=== PATIENT | male | born 1950 | race Caucasian/White ===

== ENCOUNTER 2016-12-22 12:04 | Day surgery (SDC) | payer OTHER, MEDICARE ==
[~2016-12-22] VITALS: Ht 180.3 cm; Wt 105.0 kg
[~2016-12-22 12:04] MED LIST: ASPI-973 PO; KEN25CR EXT; OMEP20CA11 PO; Sodium Chloride LOK Flush 10 mL Syringe IV PRN; fentaNYL-PF 50 mCg/mL 2 mL Inj IVPUSH PRN
[2016-12-22 12:53] VITALS: BP 137/82; PULSE 71; RESP 18; O2SAT 100
[2016-12-22] MEDS: 0.9% Sodium Chloride 1,000 ML IV SCH ×2 (13:15→13:34)
[2016-12-22 13:45] VITALS: BP 144/81; PULSE 67; RESP 16; O2SAT 95
[2016-12-22 13:55] VITALS: BP 141/83; PULSE 65; RESP 16; O2SAT 95
[2016-12-22 14:07] VITALS: BP 142/82; PULSE 61; RESP 16; O2SAT 97
[2016-12-22 14:15] VITALS: BP 145/78; PULSE 62; RESP 16; O2SAT 96
--- NOTE | 2016-12-23 03:06 | ENDO ---
[address] [address] ENDOSCOPY PROCEDURE PATIENT: NELLY JOLLY : 1950 MR#: [id number] ADMIT: 12/22/2016 JOB ID: [id number] PROCEDURE: Colonoscopy. INDICATION: Screening. Patient's ASA classification is 2. Mallampati score is 2. MEDICATIONS: 1. Versed at 7 mg. 2. Fentanyl 150 mcg. INSTRUMENT USED: PCF-H180 AL. PREP QUALITY: Fair. PROCEDURE DETAILS: After informed consent was obtained, the patient was brought into the GI suite, where he was placed on oxygen via nasal cannula and monitored with continuous pulse oximeter, telemetry and blood pressure monitoring. A time-out was performed. Then, he was placed in a left lateral decubitus position. Medications were administered for sedation. Digital rectal exam was performed with palpation of the prostate which was unremarkable. The colonoscope was then inserted into the rectum and advanced under visualization to the cecum, which identified by the presence of the ileocecal valve and appendiceal orifice. Once it was reached, the colonoscope was withdrawn back to the rectum and the mucosa and lumen were examined. In the rectum, retroflexion was performed. Following retroflexion, remaining air in the rectum was suctioned, and procedure was completed. FINDINGS: 1. In the cecum, there were three polyps ranging in size from 5 mm to 7 mm. All three polyps were removed using a hot snare. 2. In the ascending colon, there were five polyps ranging from 5 mm to 8 mm. All polyps were removed using a hot snare. The largest polyp, the 8 mm polyp following removal, there was bleeding at the polypectomy site. Therefore two hemoclips were placed successfully for cessation to control bleeding. The site was then irrigated and monitored for approximately a minute and no further bleeding was seen. 3. In the transverse colon, there was an approximately 6 mm sessile polyp that was removed with a hot snare. In the rectum, there were two diminutive polyps and removed with cold biopsy forceps. 4. Scattered diverticula were seen throughout the left side of the colon. IMPRESSION: 1. Three cecal polyps. 2. Five ascending colon polyps. 3. One transverse colon polyp. 4. Two rectal polyps. 5. Left-sided diverticulosis. RECOMMENDATIONS: 1. Fiber rich diet. 2. No NSAIDs or anticoagulants for 72 hours. 3. Repeat colonoscopy in two years. COMPLICATIONS: None. ESTIMATED BLOOD LOSS: Less than 5 mL.
--- NOTE | 2016-12-26 11:19 | PATH ---
SURGICAL PATHOLOGY Attending Physician:Collin Olivas CASE STATUS: Signed Out PATIENT NAME: NELLY JOLLY PID: [id number] : 1950 DATE COLLECTED:12/22/2016 00:00 SPECIMEN: 1: Colon, Biopsy 2: Colon, Biopsy 3: Colon, Biopsy 4: Rectum, Biopsy CLINICAL HISTORY: 1). CECAL POLYP X3 2). ASCENDING COLON POLYPS X5 3). TRANSVERSE COLON POLYP 4). RECTAL POLYPS X2 FINAL DIAGNOSIS: 1.CECAL POLYPS: TUBULAR ADENOMAS, MULTIPLE FRAGMENTS. THREE POLYPS REMOVED. 2.ASCENDING COLON POLYPS: TUBULAR ADENOMAS, MULTIPLE FRAGMENTS. SESSILE SERRATED ADENOMAS, MULTIPLE FRAGMENTS. FIVE POLYPS REMOVED. 3.TRANSVERSE COLON POLYP: SESSILE SERRATED ADENOMA. 4.RECTAL POLYPS: HYPERPLASTIC POLYPS, TWO. ICD10 CODE D12.0 D12.2 D12.3 K62.1 GROSS DESCRIPTION: Received are four formalin-filled containers, each labeled with the patient' s name. 1. Received in formalin, labeled with the patient' s name and "1. Cecal polyps", are multiple fragments of story, soft tissue ranging in size from 0.1 x 0.1 x 0.1 cm to 0.2 x 0.1 x 0.1 cm. All fragments are totally submitted in cassette 1A. 2. Received in formalin, labeled with the patient' s name and "2. Ascending colon polyp", are multiple fragments of story, soft tissue ranging in size from 0.1 x 0.1 x 0.1 cm to 0.2 x 0.2 x 0.2 cm. All fragments are totally submitted in cassette 2A. 3. Received in formalin, labeled with the patient' s name and "3. Transverse colon polyp", is one fragment of story, soft tissue measuring 0.6 x 0.5 x 0.4 cm. The fragment is bisected and totally submitted in cassette 3A. 4. Received in formalin, labeled with the patient' s name and "4. Rectal polyps", are two fragments of story, soft tissue ranging in size from 0.1 x 0.1 x 0.1 cm to 0.2 x 0.1 x 0.1 cm. All fragments are totally submitted in cassette 4A. [id number]) MICRO DESCRIPTION: See diagnosis. ICD-9 CODES: CPT CODES: 1: 95707 2: 34179 3: 50037 4: 82750 Electronically Signed Out Suzette Hauser MD [facility] Pathology [facility] [address], [place] [address] Technical component performed at [facility], [address], [place], [address]
== END 2016-12-22 23:59 | disposition home or self-care (01) ==
LOC: END 12:04
PROVIDERS: ATTEND Internal Medicine Gastroenterology
DX: Z12.11 Encounter for screening for malignant neoplasm of colon (principal); D12.0 Benign neoplasm of cecum; D12.2 Benign neoplasm of ascending colon; D12.3 Benign neoplasm of transverse colon; K62.1 Rectal polyp; K57.30 Diverticulosis of large intestine without perforation or abscess without bleeding; K21.9 Gastro-esophageal reflux disease without esophagitis; R03.0 Elevated blood-pressure reading, without diagnosis of hypertension; E78.5 Hyperlipidemia, unspecified; E66.9 Obesity, unspecified; Z72.0 Tobacco use; Z68.34 Body mass index [BMI] 34.0-34.9, adult; Z79.82 Long term (current) use of aspirin
CPT/HCPCS: 45380; 45385; 99153; G0500; J2250; J3010; J7030